=== PATIENT | female | born 1955 | race Caucasian/White ===

== ENCOUNTER 2017-01-18 06:51 | Emergency (ER) | payer OTHER ==
[~2017-01-18] VITALS: Ht 165.1 cm; Wt 68.0 kg
[~2017-01-18 06:51] MED LIST: BUPR75TA5 PO; CALC600T4 PO; MULT-18 PO; SENN1TAB70 PO; SIMV5TAB5 PO; TRAM50TA PO
[2017-01-18] MEDS ORDERED: IV NORMAL SALINE 1000ML BAG 1,000 ML IV SCH (07:12)
[2017-01-18] MEDS ORDERED: ONDANSETRON PF 4 MG/2 ML VIAL. IV ONE (07:15)
[2017-01-18] MEDS ORDERED: HYDROmorphone 2 MG/ML VIAL IV/SQ PRN (07:15)
[2017-01-18] MEDS ORDERED: METOCLOPRAMIDE HCL 10 MG/2 ML VIAL. IV ONE (07:15)
[2017-01-18] MEDS ORDERED: diphenhydrAMINE 50 MG/ML VIAL IVP ONE (07:15)
[2017-01-18 07:21] LABS: BASO % 0 % (0-3); EOS % 1 % (0-3); HEMATOCRIT 43.5 % (36.0-47.0); HEMOGLOBIN 14.7 g/dL (12.0-15.5); LYMPH # 1.9 x10^3/uL (1.0-4.8); LYMPH % 14 % (24-48); MEAN CORPUSCULAR HEMOGLOBIN 30 pg (25-35); MEAN CORPUSCULAR HGB CONC 34 g/dL (31-37); MEAN CORPUSCULAR VOLUME 88 fL (79-100); MONO % 9 % (0-9); NEUT % 77 % (31-73); PLATELET COUNT 214 x10^3/uL (140-400); RED BLOOD COUNT 4.95 x10^6/uL (3.50-5.40); RED CELL DISTRIBUTION WIDTH 12.6 % (11.5-14.5); WHITE BLOOD COUNT 14.3 x10^3/uL (4.0-11.0)
[2017-01-18] MEDS ORDERED: HYDR-2758 PO (07:28)
[2017-01-18] MEDS ORDERED: ONDA4TAB10 SL (07:28)
--- NOTE | 2017-01-18 07:28 | PHYS DOC ---
Past Medical History Past Medical History: UTI Past Surgical History: Cholecystectomy, , Hysterectomy, Tubal ligation Alcohol Use: None Drug Use: None Adult General Chief Complaint Chief Complaint: ABDOMINAL PAIN HPI HPI 61-year-old female presenting to the emergency department with suprapubic abdominal pain that is mild intermittent nonradiating and without alleviating factors. She reports the pain is worse last night associated with nausea without vomiting. This morning she has a mild headache. She has a history of a hysterectomy. She denies changes in vaginal discharge. She reports mild change in her stool habits without diarrhea. Review of systems is negative for fevers chills chest pain shortness of breath. All other review of systems is negative unless otherwise noted in history of present illness. ED course: 61-year-old female presenting to the emergency department today with suprapubic abdominal pain and a history of urinary tract infections. Vital signs. Pertinent physical examination findings show: Soft nontender abdomen without rebound tenderness or guarding present. Negative McBurneys point. Negative Altman sign. No ecchymosis present. Otherwise unremarkable examination. Blood work obtained along with CT the abdomen pelvis. Patient is given IV fluids along with metoclopramide diphenhydramine and hydromorphone when necessary for pain. On reexamination the patient was feeling much better. CT the abdomen pelvis suggestive of acute diverticulitis which is consistent with patient's clinical presentation. The patient was given oral antibiotics to be followed up by her primary care doctor in the next 3 days. The patient was then discharged home in stable condition to follow up with their primary care physician over the next 2-3 days. They were to return if their symptoms worsened or if they were concerned for any reason. [id number] discharge instructions and return precautions were given. Patient's questions were answered to their satisfaction. Patient is comfortable plan. Review of Systems Review of Systems SEE ABOVE. Current Medications Current Medications Current Medications Medications (Trade) Dose Ordered Sig/Tracey Start Time Stop Time Status Last Admin Dose Admin Diphenhydramine HCl (Benadryl) 25 mg 1X ONCE 01/18/17 07:15 01/18/17 07:22 DC 01/18/17 07:39 25 MG Hydromorphone HCl (Dilaudid) 0.5 mg PRN Q15MIN PRN 01/18/17 07:15 01/19/17 07:14 Info (Do NOT chart on this entry -- for MONITORING) 1 each PRN DAILY PRN 01/18/17 08:15 01/20/17 08:14 Iohexol (Omnipaque 300 Mg/ml) 75 ml STK-MED ONCE 01/18/17 08:16 01/18/17 08:17 DC Metoclopramide HCl (Reglan) 10 mg 1X ONCE 01/18/17 07:15 01/18/17 07:22 DC 01/18/17 07:39 10 MG Ondansetron HCl (Zofran) 4 mg 1X ONCE 01/18/17 07:15 01/18/17 07:17 DC Sodium Chloride 1,000 ml @ 1,000 mls/hr Q1H 01/18/17 07:12 01/18/17 08:11 DC 01/18/17 07:40 1,000 MLS/HR Allergies Allergies Allergies Coded Allergies Type Severity Reaction Last Updated Verified No Known Allergies Allergy Unknown 11/18/13 No Physical Exam Physical Exam SEE ABOVE Constitutional: Well developed, well nourished, no acute distress, non-toxic appearance. [] HENT: Normocephalic, atraumatic, bilateral external ears normal, oropharynx moist, no oral exudates, nose normal. [] Eyes: PERRLA, EOMI, conjunctiva normal, no discharge. [] Neck: Normal range of motion, no tenderness, supple, no stridor. Cardiovascular:Heart rate regular rhythm, no murmur [] Lungs & Thorax: Bilateral breath sounds clear to auscultation [] Abdomen: Bowel sounds normal, soft, no tenderness, no masses, no pulsatile masses. Skin: Warm, dry, no erythema, no rash. [] Back: No tenderness, no CVA tenderness. [] Extremities: No tenderness, no cyanosis, no clubbing, ROM intact, no edema. Neurologic: Alert and oriented X 3, normal motor function, normal sensory function, no focal deficits noted. Psychologic: Affect normal, judgement normal, mood normal. [] Current Patient Data Vital Signs Vital Signs Date Time Temp Pulse Resp B/P (MAP) Pulse Ox O2 Delivery O2 Flow Rate FiO2 01/18/17 08:36 101 20 168/81 (110) 96 01/18/17 07:06 98.9 Room Air 98.9 Lab Values Laboratory Tests Test 01/18/17 07:05 01/18/17 07:10 Urine Collection Type Unknown Urine Color Yellow Urine Clarity Clear Urine pH 6.0 Urine Specific [place] 1.020 Urine Protein Negative mg/dL (NEG-TRACE) Urine Glucose (UA) Negative mg/dL (NEG) Urine Ketones (Stick) Negative mg/dL (NEG) Urine Blood Moderate (NEG) Urine Nitrite Negative (NEG) Urine Bilirubin Negative (NEG) Urine Urobilinogen Dipstick 0.2 mg/dL (0.2 mg/dL) Urine Leukocyte Esterase Negative (NEG) Urine RBC 6-10 /HPF (0-2) Urine WBC 1-4 /HPF (0-4) Urine Squamous Epithelial Cells Mod /LPF Urine Bacteria Few /HPF (0-FEW) Urine Mucus Mod /LPF White Blood Count 14.3 x10^3/uL (4.0-11.0) H Red Blood Count 4.95 x10^6/uL (3.50-5.40) Hemoglobin 14.7 g/dL (12.0-15.5) Hematocrit 43.5 % (36.0-47.0) Mean Corpuscular Volume 88 fL (79-100) Mean Corpuscular Hemoglobin 30 pg (25-35) Mean Corpuscular Hemoglobin Concent 34 g/dL (31-37) Red Cell Distribution Width 12.6 % (11.5-14.5) Platelet Count 214 x10^3/uL (140-400) Neutrophils (%) (Auto) 77 % (31-73) H Lymphocytes (%) (Auto) 14 % (24-48) L Monocytes (%) (Auto) 9 % (0-9) Eosinophils (%) (Auto) 1 % (0-3) Basophils (%) (Auto) 0 % (0-3) Neutrophils # (Auto) 11.0 x10^3uL (1.8-7.7) H Lymphocytes # (Auto) 1.9 x10^3/uL (1.0-4.8) Monocytes # (Auto) 1.2 x10^3/uL (0.0-1.1) H Eosinophils # (Auto) 0.1 x10^3/uL (0.0-0.7) Basophils # (Auto) 0.0 x10^3/uL (0.0-0.2) Prothrombin Time 13.2 SEC (11.7-14.0) Prothrombin Time INR 1.1 (0.8-1.1) PTT 31 SEC (24-38) Sodium Level 135 mmol/L (136-145) L Potassium Level 4.2 mmol/L (3.5-5.1) Chloride Level 100 mmol/L (98-107) Carbon Dioxide Level 26 mmol/L (21-32) Anion Gap 9 (6-14) Blood Urea Nitrogen 10 mg/dL (7-20) Creatinine 0.7 mg/dL (0.6-1.0) Estimated GFR (Cockcroft-Gault) 84.8 Glucose Level 130 mg/dL (70-99) H Calcium Level 9.8 mg/dL (8.5-10.1) Total Bilirubin 0.7 mg/dL (0.2-1.0) Direct Bilirubin 0.1 mg/dL (0.0-0.2) Aspartate Amino Transferase (AST) 25 U/L (15-37) Alanine Aminotransferase (ALT) 36 U/L (14-59) Alkaline Phosphatase 79 U/L (46-116) Total Protein 7.7 g/dL (6.4-8.2) Albumin 3.8 g/dL (3.4-5.0) Lipase 160 U/L (73-393) Laboratory Tests 01/18/17 07:10 Laboratory Tests 01/18/17 07:10 EKG EKG [] Radiology/Procedures Radiology/Procedures [] Course & Med Decision Making Course & Med Decision Making Pertinent Labs and Imaging studies reviewed. (See chart for details) [] Dragon Disclaimer Dragon Disclaimer This electronic medical record was generated, in whole or in part, using a voice recognition dictation system. Departure Departure Impression: Primary Impression: Suprapubic abdominal pain Additional Impression: Acute diverticulitis Disposition: HOME, SELF-CARE Condition: STABLE Referrals: NO PCP (PCP) DARIAN LYNNE MD Patient Instructions: Abdominal Pain, Diverticulitis Additional Instructions: Thank you for allowing us to participate in your care today. Followup with your primary care physician in 3 days if your symptoms do not improve. Call your Primary Doctor tomorrow and inform them of your visit today. If you do not have a primary care provider you can ask for a list of our primary care providers. Return to the emergency department you have any new or concerning findings. This should be evaluated by the primary care physician and any necessary consulting services for continued management within a few days after discharge. Return to emergency room if you have any new or concerning symptoms including but not limited to fever, chills, nausea, vomiting, intractable pain, any new rashes, chest pain, shortness of air, uncontrolled bleeding, difficulty breathing, and/or vision loss. You may have been prescribed medication that can change in your level of thinking and ability to operate machinery. These medications include hydrocodone and Ativan. Also, Benadryl has been known to do this as well. Be sure to check with your pharmacist and ask if the medications you've prescribed can affect your level of consciousness. I recommend not operating heavy machinery or driving while on medication such as these. Scripts Ciprofloxacin Hcl (CIPRO) 500 Mg Tablet 1 TAB PO BID, #14 TAB Prov: DEWAYNE CORDOVA MD 01/18/17 Metronidazole (FLAGYL) 500 Mg Tablet 1 TAB PO BID, #14 TAB Prov: DEWAYNE CORDOVA MD 01/18/17 Ondansetron (ZOFRAN ODT) 4 Mg Tab.rapdis 1 TAB SL PRN Q8HRS Y for NAUSEA, #6 TAB Prov: DEWAYNE CORDOVA MD 01/18/17 Hydrocodone Bit/Acetaminophen (HYDROCODONE-APAP 5-325 ) 1 Each Tablet 1 TAB PO PRN Q6HRS Y for PAIN, #10 TAB 0 Refills Be careful as this medication may cause you to be drowsy or tired. Do not drive on this medication. Prov: DEWAYNE CORDOVA MD 01/18/17 Problem Qualifiers DEWAYNE CORDOVA MD Jan 18, 2017 07:28
[2017-01-18 07:35] LABS: BILIRUBIN,URINE NEGATIVE (NEG); GLUCOSE,URINE NEGATIVE (NEG); NITRITE,URINE NEGATIVE (NEG); PROTEIN,URINE NEGATIVE (NEG-TRACE); UROBILINOGEN,URINE 0.2 mg/dL (0.2 mg/dL)
[2017-01-18 07:43] LABS: INR 1.1 (0.8-1.1); PROTHROMBIN TIME PATIENT 13.2 SEC (11.7-14.0)
[2017-01-18 07:48] LABS: CALCIUM 9.8 mg/dL (8.5-10.1); CREATININE 0.7 mg/dL (0.6-1.0); GFR 84.8; POTASSIUM 4.2 mmol/L (3.5-5.1)
[2017-01-18 07:50] LABS: BACTERIA,URINE FEW /HPF (0-FEW); SQUAMOUS EPITHELIAL CELL,UR MOD /LPF
[2017-01-18 07:53] LABS: ALBUMIN 3.8 g/dL (3.4-5.0); DIRECT BILIRUBIN 0.1 mg/dL (0.0-0.2); TOTAL BILIRUBIN 0.7 mg/dL (0.2-1.0); TOTAL PROTEIN 7.7 g/dL (6.4-8.2)
[2017-01-18] MEDS ORDERED: CONTRAST GIVEN MC PRN (08:15)
[2017-01-18] MEDS ORDERED: IOHEXOL 300 MG/ML 75 ML VIAL IV ONE (08:15)
[2017-01-18] MEDS ORDERED: IOHEXOL 300 MG/ML 75 ML VIAL ONE (08:16)
[2017-01-18 08:36] VITALS: BP 168/81
--- NOTE | 2017-01-18 09:08 | RAD ---
CT of the abdomen and pelvis with contrast, 01/18/2017: History: Left lower quadrant pain Multidetector CT imaging was performed following an IV bolus injection of iodinated contrast material. No oral contrast material was administered for this study. Comparison is made to an exam from 11/08/2012. There is minimal atelectasis and/or scarring in the lung bases. The gallbladder is surgically absent. There is no evidence of a hepatic mass or significant bile duct dilatation. The pancreas is unremarkable. The spleen is of normal size. Several small subcentimeter low density areas in both kidneys are too small to definitively characterize, but are probably cysts. There is a small calcification in the lower pole left kidney. The renal collecting systems and ureters are not dilated. The abdominal aorta is of normal caliber. No abdominal or pelvic adenopathy is seen. The uterus is surgically absent. Colonic diverticula are again noted, most numerous in the sigmoid region. There is mural thickening in the mid to distal sigmoid colon centered near the midline with moderate paracolic inflammation. The findings suggest acute diverticulitis. No discrete paracolic abscess is identified. No free air or significant free fluid is evident in the abdomen or pelvis. The bowel loops are not dilated. Moderate degenerative change is present at the L5-S1 disc level. IMPRESSION: 1. Acute sigmoid diverticulitis. 2. Tiny nonobstructing left intrarenal calculus. 3. Probable small bilateral renal cysts. PQRS Compliance Statement: One or more of the following individualized dose reduction techniques were utilized for this examination: 1. Automated exposure control 2. Adjustment of the mA and/or kV according to patient size 3. Use of iterative reconstruction technique
[2017-01-18] MEDS ORDERED: CIPR500T94 PO (09:18)
[2017-01-18] MEDS ORDERED: METR500T PO (09:18)
== END 2017-01-18 09:20 | disposition home or self-care (01) ==
LOC: ER 06:51
DX: K57.32 Diverticulitis of large intestine without perforation or abscess without bleeding (principal); R51 Headache; Z90.49 Acquired absence of other specified parts of digestive tract; Z90.710 Acquired absence of both cervix and uterus; Z87.440 Personal history of urinary (tract) infections
CPT/HCPCS: 36415; 74177; 80048; 80076; 81001; 83690; 85025; 85610; 85730; 96361; 96374; 96375; 99285; J1200; J2765; J7030; Q9967